=== PATIENT | female | born 1990 | race Caucasian/White ===

== ENCOUNTER 2020-08-29 20:01 | Inpatient (IN) | payer SELFPAY ==
[2020-08-29 20:01] VITALS: BMI 55.8
[2020-08-29 20:28] VITALS: RESP 16
[2020-08-29] MEDS: ampicillin 2,000 MG in sodium chloride 0.9% (plus) 50 ML 100 MG IV (20:40)
[2020-08-29] MEDS: lactated ringers 1,000 ML 125 ML IV (20:40)
[2020-08-29 20:44] VITALS: BP 178/112; PULSE 80
[2020-08-29 20:47] VITALS: BP 143/83; PULSE 90
[2020-08-29 21:00] VITALS: BP 144/81; PULSE 82
[2020-08-29 21:08] LABS: Basophils % 0.2 %; Eosinophils % 0.2 %; Hematocrit 41.1 % (37.0-47.0); Lymphocytes # 1.4 10^3/uL (0.8-4.8); Lymphocytes % 9.1 %; Mean Corpuscular HGB Conc 31.6 g/dL (30.0-36.0); Mean Corpuscular Hemoglobin 25.9 pg (28.0-34.0); Mean Platelet Volume 10.9 fL (7.4-10.4); Monocytes # 0.7 10^3/uL (0.2-0.9); Monocytes % 4.2 %; Neutrophils # 13.44 10^3/uL (1.8-7.7); Neutrophils % 85.7 %; Nucleated Red Blood Cells % 0 %; Platelet Count 369 10^3/cmm (130-400); Red Blood Count 5.01 10^6/uL (4.1-5.3); Red Cell Distribution Width 15.5 % (12.1-15.1); White Blood Count 15.7 10^3/uL (4.0-10.0)
[2020-08-29 22:47] VITALS: BP 148/93; PULSE 105
[2020-08-29 23:16] VITALS: BP 148/70; PULSE 100
[2020-08-30] VITALS (22 sets, daily range): BP systolic 102–203; BP diastolic 59–88; PULSE 82–104; RESP 16–18; TEMP 36.4–36.9; O2SAT 97
[2020-08-30] MEDS: ampicillin 1,000 MG in sodium chloride 0.9% (plus) 50 ML 100 MG IV (00:20)
--- NOTE | 2020-08-30 01:00 | PC.NURSE ---
UPON ARRIVAL OF PT TO UNIT REPORT WAS GIVEN BY SENIOR WINDOWS ENGINEER VÍCTOR LIND TO THIS NURSE. INCLUDED THAT PTS MEMBRANES HAD RUPTURED ON 08-28-20 AT 1600 AND WAS NITRAZINE POSITIVE. CLEAR FLUID AT THAT TIME. PT NOW HAD BULGING FOREBAG UPON MY EXAMINATION AT ADMISSION. DR. PHELPS WAS NOTIFIED AND HE RUPTURED FOREBAG AT 2105 NOTING LIGHT MEC FLUID.
[2020-08-30] MEDS: oxytocin 30 UNIT/500 ML BAG 600 UNIT IV (01:34)
[2020-08-30] MEDS: lidocaine 2% INJ 20 mL INJECTION ×2 (02:10→02:12)
--- NOTE | 2020-08-30 02:35 | P.PCNOB_ITS ---
Delivery Note: Date of delivery: August 30, 2020 Pre-Delivery Course: The patient is a 30-year-old 1 female who received her care via a nurse operations technician. Her has been unremarkable. She went to active labor at 42 weeks estimated gestational age. She had spontaneous rupture membranes about 34 hours prior to delivery of the infant per the operations technician. When the water broke initially, there was no meconium noted. She received care from her operations technician. She received an ultrasound at 28 weeks which corresponded well with her last menstrual period. Her blood type was A-. Her hepatitis B and HIV tests were negative. Antibody screen was negative. RPR was negative. Rubella was equivocal. Her initial TSH was low with a normal T4. A follow-up TSH was within normal limits without treatment. It is not clear why a thyroid test was done in the first place. She passed her 1 hour glucose screen. She had no other medical problems. She refused the RhoGam shot at 28 weeks. The remainder of her labs were within normal limits. Her hemoglobin was 13.0 upon arrival at the hospital she had no other medical problems. Her GBS status was unknown. Covid status is unknown. She was placed on antibiotics and received 2 doses of ampicillin. I came in approximately 5 hours prior to delivery because she had a a forebag and there was a question about presentation of the baby. Ultrasound confirmed that the baby was head down. And after I performed an amniotomy light meconium was noted. The patient was about 8 cm dilated 100% effaced at the time I ruptured membranes. She then gradually progressed to complete without difficulty. Delivery: DELIVERY: The patient progressed to complete without difficulty. She delivered a male with a weight of 9 pounds 11 ounces with Apgars of 9, 9. The baby was delivered from the MARY position. The cord was then clamped and cut about 2 minutes after delivery.. There was no nuchal cord. There was light meconium. The placenta and 3 vessel cord were delivered intact shortly thereafter. The perineum and vaginal vault were carefully examined. The patient had a second-degree tear, was complicated by 2 vaginal tears, and tears extending up onto both of the labia majora. I used 3-0 Vicryl to reapproximate the tissues on the repair. Both the mother and the baby were in stable condition. Post-Delivery Status: Good A&P Assessment and plan (1) 42 weeks gestation of : I anticipate routine care. Status: Acute Coding Level of Care Code Acute Container Repairer for Chg Fwd Diagnoses 42 weeks gestation of Z3A.42
[2020-08-30] MEDS: benzocaine-menthol 78 gm Canister 1 SPRAY TOPICAL (05:52)
[2020-08-30] MEDS: lanolin oint 7 gm 1 APPLIC TOPICAL (05:52)
[2020-08-30] MEDS: ibuprofen 800 mg tablet PO ×2 (10:47→16:50)
[2020-08-30] MEDS: prenatal vitamin Capsule 1 CAP PO (10:47)
[2020-08-30] MEDS: docusate sodium 100 mg Capsule PO (10:47)
[2020-08-30 16:13] LABS: Hematocrit 27.7 % (37.0-47.0); Hemoglobin 8.6 g/dL (11.5-15.3); Mean Corpuscular Volume 83.7 fL (81-99); Mean Platelet Volume 10.9 fL (7.4-10.4); Platelet Count 268 10^3/cmm (130-400); Red Blood Count 3.31 10^6/uL (4.1-5.3); Red Cell Distribution Width 15.4 % (12.1-15.1)
[2020-08-30 16:43] LABS: Thyroid Stimulating Hormone 2.09 uIU/mL (0.27-4.20)
[2020-08-31] VITALS: BP 108/70; PULSE 78; RESP 16
[2020-08-31 06:00] VITALS: BP 103/71; PULSE 78; RESP 17; TEMP 36.8
--- NOTE | 2020-08-31 06:41 | PM.OBGYDC ---
Discharge Providers GROUP DIRECTOR EXPERIENCE Date of Admission: 08/29/20 20:01 Date of Discharge: 08/31/20 Attending Provider at Admission: Paul Ingram MD Attending Provider at Discharge: Paul Ingram MD Diagnoses at Discharge Discharge Diagnosis (1) 42 weeks gestation of : Status: Acute Reason for Visit Reason for Visit: SROM Hospital Course Hospital Course The patient presented to the hospital after being in labor at home with a nurse cart pusher. She had ruptured membranes at about 20 hours prior to arrival to hospital. She then had an unremarkable labor here and delivered a healthy appearing male . Her course was unremarkable. Her bleeding was within normal limits. Her pain was well controlled. There were no concerns. The patient declines any medication, she states that she has options at home for pain control. Information Peripartum Data: Infant Delivery Method: Vaginal Physical Exam Narrative: EXAM NARRATIVE: The patient is alert. She appears comfortable. Her heart has a regular rate and rhythm with no murmurs appreciated. Lungs are clear to auscultation bilaterally. Her fundus is firm and below the umbilicus. Discharge Data Data Completed and Pending: Pending at discharge Category Date Time Status Complete Blood Co unt w/Auto AM LABS Lab 08/31/20 04:00 Ordered Complete Crossmat ch Routine Lab 08/29/20 20:50 Results Retype for Patichristine s ABO/Rh Routine Lab 08/30/20 10:52 Ordered Rho D Immune Glob ulin Routine Lab 08/29/20 20:50 Results Type and Screen R outine Lab 08/29/20 20:50 Results Labs from last 24 hours 08/30/20 08/30/20 08/30/20 15:30 15:30 15:30 WBC 13.0 H RBC 3.31 L Hgb 8.6 L D Hct 27.7 L D MCV 83.7 MCH 26.0 L MCHC 31.0 RDW 15.4 H Plt Count 268 MPV 10.9 H TSH 2.09 Blood Type Rho(D) Type Antibody Screen Screen Negative 08/29/20 20:50 WBC RBC Hgb Hct MCV MCH MCHC RDW Plt Count MPV TSH Blood Type A Negative Rho(D) Type Negative Antibody Screen Negative Screen Vitals: Last Vital Signs Temp 98.4 F 08/30/20 21:00 Pulse 86 08/30/20 21:00 Resp 18 08/30/20 21:00 BP 102/64 08/30/20 21:00 Pulse Ox 97 08/30/20 16:30 Discharge Plan Discharge Patient Disposition: Home Condition: Stable Prescriptions: No Action No Known Home Medications RF: 0 Discharge Orders: Discharge Order (Routine); Ordered 08/31/20 Ordered By: Paul Ingram Discharge Diet: Regular Discharge Activity: Limit activity as instructed Activity Restrictions/Additional Instructions: I spoke with the patient's nursing cart pusher, and she will perform the visit. She states that she will be attached the patient's to set that up in 6 weeks. The Discharge Attestations GROUP DIRECTOR EXPERIENCE Time Spent in Discharge Care*: less than 30 min Coding Level of Care Code Acute Space Systems Operations Manager for [place] Fwd Diagnoses 42 weeks gestation of Z3A.42
[2020-08-31 07:45] LABS: Basophils % 0.4 %; Eosinophils # 0.2 10^3/uL (0.0-0.8); Eosinophils % 2.3 %; Hemoglobin 9.2 g/dL (11.5-15.3); Lymphocytes # 1.7 10^3/uL (0.8-4.8); Lymphocytes % 16.9 %; Mean Corpuscular HGB Conc 30.7 g/dL (30.0-36.0); Mean Corpuscular Hemoglobin 26.1 pg (28.0-34.0); Mean Platelet Volume 10.9 fL (7.4-10.4); Monocytes # 0.4 10^3/uL (0.2-0.9); Monocytes % 4.2 %; Neutrophils # 7.38 10^3/uL (1.8-7.7); Neutrophils % 75.5 %; Nucleated Red Blood Cells % 0 %; Platelet Count 264 10^3/cmm (130-400); Red Blood Count 3.53 10^6/uL (4.1-5.3); Red Cell Distribution Width 15.8 % (12.1-15.1); White Blood Count 9.8 10^3/uL (4.0-10.0)
[2020-08-31 09:17] VITALS: BP 108/70; PULSE 80; RESP 18; TEMP 36.7
[2020-08-31 12:00] VITALS: BP 101/61; PULSE 91; RESP 14; TEMP 36.8
[2020-08-31 13:50] VITALS: BP 101/61; PULSE 91; RESP 14; TEMP 36.8
== END 2020-08-31 12:35 | disposition home or self-care (01) | DRG 807 ==
PROVIDERS: Admitting Provider Family Medicine; Visit Provider Family Medicine
DX: O48.0 Post-term pregnancy (principal); Z37.0 Single live birth; Z3A.42 42 weeks gestation of pregnancy; O77.0 Labor and delivery complicated by meconium in amniotic fluid; O70.1 Second degree perineal laceration during delivery
CPT/HCPCS: 12345; 36415; 59409; 84443; 85025; 85027; 85460; 86850; 86900; 90384; 98960; 99211; J0290

== ENCOUNTER 2021-07-31 08:01 | Inpatient (IN) | payer SELFPAY ==
[2021-07-31] VITALS (19 sets, daily range): BP systolic 111–169; BP diastolic 63–89; PULSE 72–90; RESP 16–17; TEMP 36.1–36.3; O2SAT 97; BMI 56.1
[2021-07-31] MEDS: dextrose 5%-lactated ringers 1,000 ML 125 ML IV ×2 (08:26→17:38)
[2021-07-31] MEDS: ampicillin 2,000 MG in sodium chloride 0.9% (plus) 50 ML 100 MG IV (08:28)
[2021-07-31 08:40] LABS: Basophils % 0.2 %; Eosinophils # 0.1 10^3/uL (0.0-0.8); Eosinophils % 0.9 %; Hematocrit 40.4 % (37.0-47.0); Hemoglobin 12.5 g/dL (11.5-15.3); Lymphocytes # 1.3 10^3/uL (0.8-4.8); Lymphocytes % 10.8 %; Mean Corpuscular HGB Conc 30.9 g/dL (30.0-36.0); Mean Corpuscular Hemoglobin 25.6 pg (28.0-34.0); Mean Corpuscular Volume 82.8 fl (81-99); Mean Platelet Volume 10.5 fL (7.4-10.4); Monocytes # 0.5 10^3/uL (0.2-0.9); Monocytes % 4.1 %; Neutrophils # 9.78 10^3/uL (1.8-7.7); Neutrophils % 83.6 %; Nucleated Red Blood Cells % 0 %; Platelet Count 330 10^3/cmm (130-400); Red Blood Count 4.88 10^6/uL (4.1-5.3); Red Cell Distribution Width 14.5 % (12.1-15.1); White Blood Count 11.7 10^3/uL (4.0-10.0)
[2021-07-31] MEDS: ampicillin 1,000 MG in sodium chloride 0.9% (plus) 50 ML 100 MG IV ×2 (12:57→17:38)
--- NOTE | 2021-07-31 18:26 | PM.OPHPUD ---
Labor & Delivery H&P Update Date of Procedure: July 31, 2021 Date H&P Performed: 07/27/21 H&P update information: I have reviewed H&P completed within last 30 days, No changes to prior documentation and H&P to be scanned into chart Admission Diagnosis: Preop diagnosis: 31-year-old 3 para 2-0-0-2 at 40 weeks estimated gestational age Planned procedure: Spontaneous vaginal delivery Other information: The patient is a 31-year-old 2 female who presented to the hospital having contractions throughout the night. After being checked she was found to be 5 cm dilated. Her membranes were intact. She had category 1 heart tones. Her was unremarkable. Please see H&P for details regarding lab results. The patient is Confucianism. She refused a group B strep swab, but interestingly has allowed us to treat her with a group B strep protocol. Her blood type is A-. She is rubella nonimmune. Remainder of her infectious disease panel is within normal limits. Related Problem List Diagnoses (1) 40 weeks gestation of :
--- NOTE | 2021-07-31 19:03 | PM.DELIVERY ---
Delivery Note: Date of delivery: July 31, 2021 Pre-delivery diagnoses: 40-week gestational age female in active labor Post-delivery diagnoses: Status post spontaneous vaginal delivery Procedure: Spontaneous vaginal delivery Op report anesthesia: None Estimated blood loss (mL): 800 Pre-Delivery Course: The patient presented to the hospital having contractions every 5 to 10 minutes throughout the night. Upon arrival she was found to be 5 cm dilated and 60% effaced. Since her GBS status was unknown, we watched her for 4 hours while she received her antibiotics. An amniotomy was then performed. And the patient then progressed to complete without difficulty. Delivery: DELIVERY: The patient progressed to complete without difficulty. She delivered a male with a weight of 7 pounds 10 ounces with Apgars of 9, 9. The baby was delivered from the MARY position and placed on the mother's abdomen by the nurse. I arrived just after she placed the baby on the abdomen. The cord was then clamped and cut. There was a nuchal cord, body cord, and ankle cord. All were easily reduced.. There was terminal meconium. The placenta and 3 vessel cord were delivered intact shortly thereafter. The perineum and vaginal vault were carefully examined. A second-degree posterior midline laceration was noted. It was repaired with 3-0 Vicryl in the usual fashion. She was given lidocaine 2% 10 cc to the affected area prior to repair. The patient tolerated the procedure well.. Both the mother and the baby were in stable condition. Post-Delivery Status: Good A&P Assessment and plan (1) 40 weeks gestation of : I anticipate routine care. We will check her blood sugars twice a day. She had excellent control of her blood sugars during her so I am hopeful no interventions will be necessary. Status: Resolved (2) Gestational diabetes: Status: Acute (3) Seizure disorder: Status: Acute (4) Spontaneous vaginal delivery: Status: Acute Coding Level of Care Code Acute System Support Developer for Chg Fwd Diagnoses 40 weeks gestation of Z3A.40 Gestational diabetes O24.419 Seizure disorder G40.909 Spontaneous vaginal delivery O80
[2021-07-31] MEDS: ibuprofen 800 mg tablet PO (21:11)
[2021-08-01 02:00] VITALS: BP 90/55; PULSE 68; RESP 16; O2SAT 96
[2021-08-01 06:20] VITALS: BP 115/75; PULSE 76
[2021-08-01 06:22] LABS: Hematocrit 32.4 % (37.0-47.0); Hemoglobin 10.1 g/dL (11.5-15.3); Mean Corpuscular HGB Conc 31.2 g/dL (30.0-36.0); Mean Corpuscular Volume 83.5 fl (81-99); Mean Platelet Volume 10.5 fL (7.4-10.4); Platelet Count 273 10^3/cmm (130-400); Red Blood Count 3.88 10^6/uL (4.1-5.3); Red Cell Distribution Width 14.6 % (12.1-15.1); White Blood Count 10.9 10^3/uL (4.0-10.0)
--- NOTE | 2021-08-01 08:20 | P.DS_ITS ---
Discharge Providers SETTLEMENT PROCESSOR Date of Admission: 07/31/21 08:01 Date of Discharge: 08/04/21 Attending Provider at Admission: Paul Ingram MD Attending Provider at Discharge: Paul Ingram MD Diagnoses at Discharge Discharge Diagnosis (1) 40 weeks gestation of : Status: Resolved Reason for Visit Reason for Visit: Abdominal pain Hospital Course Hospital Course The patient presented to the hospital in active labor. She progressed to complete and had an unremarkable delivery of a healthy appearing term male . Her course was unremarkable as well. She breast-fed well. Her bleeding was within normal limits. Her pain was well controlled. There were no concerns. Information Peripartum Data: Infant Delivery Method: Vaginal Physical Exam Narrative: EXAM NARRATIVE: The patient is alert. She appears comfortable. Her heart has a regular rate and rhythm with no murmurs appreciated. Lungs are clear to auscultation bilaterally. Her fundus is firm and below the umbilicus. Discharge Data Data Completed and Pending: Labs from last 24 hours 08/01/21 07/31/21 06:17 08:15 WBC 10.9 H 11.7 H RBC 3.88 L 4.88 Hgb 10.1 L 12.5 Hct 32.4 L 40.4 MCV 83.5 82.8 MCH 26.0 L 25.6 L MCHC 31.2 30.9 RDW 14.6 14.5 Plt Count 273 330 MPV 10.5 H 10.5 H Neut % (Auto) 83.6 Lymph % (Auto) 10.8 Moffat % (Auto) 4.1 Eos % (Auto) 0.9 Baso % (Auto) 0.2 Neut # (Auto) 9.78 H Lymph # (Auto) 1.3 Moffat # (Auto) 0.5 Eos # (Auto) 0.1 Baso # (Auto) 0.0 Nucleated RBC % (a uto) 0 Nucleated RBCs # 0.0 Vitals: Last Vital Signs Temp 97.3 F L 07/31/21 15:42 Pulse 76 08/01/21 06:20 Resp 16 08/01/21 02:00 BP 115/75 08/01/21 06:20 Pulse Ox 96 08/01/21 02:00 Discharge Plan Discharge Patient Disposition: Home Condition: Stable Prescriptions: Continued Vitamin 27 mg iron- 800 mcg Tablet 1 tab PO DAILY RF: 0 Discharge Orders: Discharge Order (Routine); Ordered 08/01/21 Ordered By: Paul Ingram Referrals: Paul Ingram MD [Physician] - 09/15/21 1:45 pm Discharge Diet: Usual diet Discharge Activity: Limit activity as instructed Patient Instructions: Bleeding (GEN), Preeclampsia and Eclampsia Aft er Delivery (GEN), OB Discharge Report, OB Food/Drug Interaction Guide, OB Care at Home, OB Home Care, OB Proud Parent Packet, OB Vaginal Deliveries, Abnormal Bleeding Discharge Attestations SETTLEMENT PROCESSOR Time Spent in Discharge Care*: less than 30 min Coding Level of Care Code Acute Pediatric Oncology Nurse for Chg Fwd Diagnoses 40 weeks gestation of Z3A.40
[2021-08-01 09:30] VITALS: BP 126/83; PULSE 76; RESP 16; TEMP 36.6
[2021-08-01] MEDS: ibuprofen 800 mg tablet PO ×2 (09:31→16:00)
[2021-08-01] MEDS: prenatal vitamin Capsule 1 CAP PO (09:31)
[2021-08-01] MEDS: docusate sodium 100 mg Capsule PO (09:31)
[2021-08-01 16:00] VITALS: BP 122/80; PULSE 80; RESP 16; TEMP 36.4
[2021-08-01 19:49] VITALS: BP 122/80; PULSE 80; RESP 16; TEMP 36.4
== END 2021-08-01 20:00 | disposition home or self-care (01) | DRG 807 ==
LOC: OPOB 08:01 → OBGYN 08:02
PROVIDERS: Admitting Provider Family Medicine; Visit Provider Family Medicine
DX: O77.0 Labor and delivery complicated by meconium in amniotic fluid (principal); Z37.0 Single live birth; O69.2XX0 Labor and delivery complicated by other cord entanglement, with compression, not applicable or unspecified; O70.1 Second degree perineal laceration during delivery; Z3A.40 40 weeks gestation of pregnancy
CPT/HCPCS: 12345; 59409; 85025; 85027; J0290

== ENCOUNTER → 2023-01-02 09:38 | Outpatient (BNVA) | payer SELFPAY | PROVIDERS: Visit Provider Obstetrics & Gynecology | DX: Z34.90 Encounter for supervision of normal pregnancy, unspecified, unspecified trimester (principal) | CPT/HCPCS: 80307; 81000; 81025; 82950; 85027; 86592; 86762; 86803; 86850; 86900; 87086; 87340; 87806 ==

== ENCOUNTER → 2023-01-08 14:23 | Outpatient (BNVA) | payer SELFPAY | PROVIDERS: Visit Provider Obstetrics & Gynecology | DX: Z34.93 Encounter for supervision of normal pregnancy, unspecified, third trimester (principal); Z3A.30 30 weeks gestation of pregnancy | CPT/HCPCS: 76805 ==

== ENCOUNTER → 2023-01-16 08:17 | Outpatient (BNVA) | payer SELFPAY | PROVIDERS: Visit Provider Obstetrics & Gynecology | DX: O09.30 Supervision of pregnancy with insufficient antenatal care, unspecified trimester (principal) | CPT/HCPCS: 81000 ==

== ENCOUNTER → 2023-01-25 11:50 | Outpatient (BNVA) | payer SELFPAY | PROVIDERS: Visit Provider Obstetrics & Gynecology | DX: Z34.93 Encounter for supervision of normal pregnancy, unspecified, third trimester (principal); Z3A.33 33 weeks gestation of pregnancy | CPT/HCPCS: 76816; 81000 ==